=== PATIENT | male | born 1960 | race Hispanic/Latino ===

== ENCOUNTER 2019-09-23 15:24 | Emergency (ER) | payer MEDICAID ==
--- NOTE | 2019-09-23 15:51 | Emergency Department Report ---
ED Chest Pain HPI - General Stated Complaint: CHEST PAIN Time Seen by Provider: 09/23/19 15:36 - History of Present Illness Initial Comments: 59-year-old male presents to the emergency department via EMS from home with a complaint of some left-sided chest pain that started earlier today. It is associated with some intermittent shortness of breath but he denies any fever, coughing, wheezing, back pain, lower extremity swelling. He did not take anything for his symptoms at home but did receive some sublingual nitro in route that has helped with his pain. Currently it is about a 4 out of 10 in intensity. He has a past medical history of gout, COPD, coronary artery disease with previous WA and triple bypass. He is a former smoker having quit in 2011. He denies any illicit drug use. No recent travel or sick contacts at home. His primary care physician is Dr. Nolan at [facility] and his fashion journalist is Dr. Cardoza. - Related Data Previous Rx's Medication Instructions Recorded Last Taken Type Acetaminophen/Codeine [Tylenol #3] 1 tab PO Q6H PRN #20 tab 09/07/15 Unknown Rx Colchicine 0.6 mg PO BID #6 capsule 09/07/15 Unknown Rx Indomethacin 50 mg PO Q8H #30 capsule 09/07/15 Unknown Rx Allergies Allergy/AdvReac Type Severity Reaction Status Date / Time No Known Allergies Allergy Verified 09/07/15 20:47 Heart Score - HEART Score History: Moderately suspicious EKG: Non-specific Age: 45-65 Risk factors: > 3 risk factors or hx of atherosclerotic disease Troponin: < normal limit HEART Score: 5 - Critical Actions Critical Actions: 4-6 pts:12-16.6% risk of adverse cardiac event. Should be a dmitted ED Review of Systems ROS: Stated complaint: CHEST PAIN Other details as noted in HPI Comment: All other systems reviewed and negative Constitutional: denies: chills, fever Eyes: denies: eye pain, vision change ENT: denies: ear pain, throat pain Respiratory: shortness of breath. denies: cough Cardiovascular: chest pain. denies: palpitations Gastrointestinal: denies: abdominal pain, vomiting Genitourinary: denies: dysuria, discharge Musculoskeletal: denies: back pain, arthralgia Skin: denies: rash, lesions Neurological: denies: headache, weakness ED Past Medical Hx - Past Medical History Hx Hypertension: Yes Hx Heart Attack/AMI: Yes Hx Arthritis: Yes (GOUT) Additional medical history: high cholesterol - Surgical History Hx Coronary Stent: Yes Hx Open Heart Surgery: Yes (CABG x3 - 2012) - Social History Smoking Status: Former Smoker Substance Use Type: None - Medications Home Medications: Home Medications Medication Instructions Recorded Confirmed Last Taken Type Acetaminophen/Codeine [Tylenol #3] 1 tab PO Q6H PRN #20 tab 09/07/15 Unknown Rx Colchicine 0.6 mg PO BID #6 capsule 09/07/15 Unknown Rx Indomethacin 50 mg PO Q8H #30 capsule 09/07/15 Unknown Rx ED Physical Exam - Other Other exam information: GENERAL: The patient is well-developed well-nourished. HENT: Normocephalic. Atraumatic. Patient has moist mucous membranes. EYES: Extraocular motions are intact. NECK: Supple. Trachea is midline. CHEST/LUNGS: Clear to auscultation. There is no respiratory distress noted. HEART/CARDIOVASCULAR: Irregular rhythm. There is no tachycardia. ABDOMEN: Abdomen is soft, nontender. Patient has normal bowel sounds. SKIN: Skin is warm and dry. NEURO: The patient is awake, alert, and oriented. The patient is cooperative. The patient has no focal neurologic deficits. Normal speech. MUSCULOSKELETAL: There is no tenderness or deformity. There is no evidence of acute injury. ED Course Vital Signs 09/23/19 09/23/19 15:43 16:40 Temperature 97.9 F Pulse Rate 76 72 Respiratory 14 17 Rate Blood Pressure 118/65 Blood Pressure 126/72 [Left] O2 Sat by Pulse 98 97 Oximetry - Reevaluation(s) Reevaluation #1: I had already spoken to the patient regarding the EKG and monitoring manager showing atrial fibrillation. When I went back to discuss the lab results, chest x-ray, and the need for CT angiography of the chest and probable admission, the patient was standing next to his bed pulling out his IV and taking himself off of the monitoring manager. Patient says "I am getting out of here." Patient says "I have already been here for 1 hour, I am hungry and I do not feel well." I explained to him that he is in atrial fibrillation and is not currently on any anticoagulation. On top of that, the patient has history of coronary artery di sease with previous WA and CABG and presented with acute chest pain that had some improvement with sublingual nitro. For all these reasons the patient will need admission to the hospital. I explained to the patient that leaving at this time, AGAINST MEDICAL ADVICE, could lead to worsening of his chest pain, shortness of breath, heart attack, blood clots, or even sudden . The patient is awake, alert, oriented and has a normal decision-making capacity. The patient says that he understands all of the risks of leaving and still has chosen to do so. The patient has signed the AMA paperwork. I explained to him that he is welcome back at any time if he changes his mind about further eval uation, admission, or if he has any acute distress. 09/23/19 16:59 CUBA score - [place] Score Age > 65: (0) No Aspirin use within the Past 7 Days: (0) No 3 or more CAD Risk Factors: (1) Yes 2 or more Angina events in past 24 hrs: (1) Yes Known CAD with more than 50% Stenosis: (1) Yes Elevated Cardiac Markers: (0) No ST Deviation Greater than 0.5mm: (0) No CUBA Score: 3 ED Medical Decision Making - Lab Data Result diagrams: 09/23/19 15:50 09/23/19 15:50 - EKG Data -: EKG Interpreted by Me - EKG Data When compared to previous EKG there are: previous EKG unavailable Interpretation: other (Atrial fibrillation, rate of 79 bpm, normal axis, T wave inversions to the septal and anterior leads) - Radiology Data Radiology results: image reviewed interpreted by me: Chest x-ray does not show any acute process. There are no pleural effusions, obvious pneumonia and there is no pneumothorax. - Medical Decision Making This patient presents to the emergency department with a complaint of some chest pain, intermittent shortness of breath. Patient was found to be in atrial fibrillation with a controlled rate. There is some questionable history of previous A. fib but it is not chronic and he is not anticoagulated. A chest x- ray was done that did not show any pneumonia, pleural effusions, or any other acute process. The patient's labs have been mostly unremarkable thus far except for a elevated d-dimer level. The plan was to obtain CT angiography of the chest secondary to his atrial fibrillation and elevated dimer without anticoagulation. However, as previously mentioned in the reevaluation section, when I went back to talk to the patient about his results and the need for CT angiography and probable admission, the patient was already taking himself off of the monitor and trying to leave the emergency department. He is awake, alert, oriented with normal decision-making capacity and despite understanding the risks of leaving the patient signed out AGAINST MEDICAL ADVICE. He does understand that he can return to the emergency department if he changes his mind about further evaluation and/or admission, or if he has any acute changes or any acute distress. - Differential Diagnosis WA, PE, dysrhythmia, CHF Critical Care Time: No Critical care attestation.: If time is entered above; I have spent that time in minutes in the direct care of this critically ill patient, excluding procedure time. ED Disposition Clinical Impression: History of coronary artery disease, Acute chest pain Atrial fibrillation Qualifiers: Atrial fibrillation type: unspecified Qualified Code(s): I48.91 - Unspecified atrial fibrillation Disposition: DC-07 LEFT AGAINST MED ADVICE Is pt being admited?: No Instructions: Chest Pain (ED) Additional Instructions: Return to the emergency department immediately if you change your mind about further evaluation and admission, or if you have any acute changes or acute distress. Otherwise, if you still are adamant about leaving AGAINST MEDICAL ADVICE, it is recommended that you follow-up with your fashion journalist. Referrals: NIMESH GARCIA MD [Primary Care Provider] - 3-5 Days Forms: AMA Form Time of Disposition: 21:33
[2019-09-23 16:06] LABS: Basophils % (Auto) 0.7 % (0.0-1.8); Eosinophils % (Auto) 0.5 % (0.0-4.3); Hemoglobin 13.9 gm/dl (11.8-15.2); Lymphocytes # (Auto) 0.8 K/mm3 (1.2-5.4); Mean Corpuscular HGB Conc 33 % (32-34); Mean Corpuscular Volume 87 fl (84-94); Monocytes # (Auto) 0.4 K/mm3 (0.0-0.8); Monocytes % (Auto) 6.1 % (0.0-7.3); Platelet Count 286 K/mm3 (140-440); Red Blood Count 4.84 M/mm3 (3.65-5.03); Red Cell Distribution Width 13.9 % (13.2-15.2)
--- NOTE | 2019-09-23 16:08 | XRay Report ---
CHEST 1 VIEW 09/23/2019 3:43 PM INDICATION / CLINICAL INFORMATION: Chest pain. COMPARISON: 07/26/11 FINDINGS: SUPPORT DEVICES: None. HEART / MEDIASTINUM: Heart is mildly enlarged. Median sternotomy wires and CABG clips have been place d in the interval. LUNGS / PLEURA: No significant pulmonary or pleural abnormality. No pneumothorax. ADDITIONAL FINDINGS: No significant additional findings. IMPRESSION: 1. Mild cardiomegaly but no acute pulmonary or pleural findings. Signer Name: Cecy Peralta MD Signed: 09/23/2019 4:04 PM Workstation Name: [id number]
[2019-09-23 16:16] LABS: INR 1.05 (0.87-1.13)
[2019-09-23 16:19] LABS: BUN/Creatinine Ratio 11; Blood Urea Nitrogen 10 mg/dL (9-20); Calcium 8.9 mg/dL (8.4-10.2); Hemolysis Index 8
[2019-09-23 17:28] VITALS: BP 126/72
== END 2019-09-23 16:55 | disposition left against medical advice (07) ==
LOC: ED 15:24
DX: R07.89 Other chest pain (principal); I48.91 Unspecified atrial fibrillation; I10 Essential (primary) hypertension; I21.9 Acute myocardial infarction, unspecified; Z95.1 Presence of aortocoronary bypass graft; I25.10 Atherosclerotic heart disease of native coronary artery without angina pectoris; Z87.891 Personal history of nicotine dependence
CPT/HCPCS: 36415; 71045; 80048; 84484; 85025; 85379; 85610; 93005; 93010